=== PATIENT | male | born 1975 | race African-American/Black ===

== ENCOUNTER 2019-04-18 09:57 | Inpatient (IN) | payer OTHER ==
[2019-04-18 10:54] LABS: Bacteria/HPF None Seen HPF (None Seen); Bilirubin Negative (Negative); Blood, Urine 1+ (Negative); Clarity Clear (Clear); Glucose, Urine (Dipstick) Normal (Negative); Leukocyte Negative Leu/uL (Negative); Nitrite Negative (Negative); Protein, Urine (Dipstick) Negative (Neg-Trace); RBC/HPF 0-3 HPF (0-3); Squamous Epithelial 0-3 HPF (0-3); WBC/HPF 0-3 HPF (0-3)
[2019-04-18 11:40] LABS: #Basophils 0.1 thou/uL (0.0-0.2); #Eosinphils 0.2 thou/uL (0.0-0.7); #Lymphocytes 1.4 thou/uL (1.20-3.40); #Neutrophils 7.2 thou/uL (1.40-6.50); %Basophils 0.7 % (0.0-1.0); %Lymphocytes 14.1 % (21.0-51.0); %Monocytes 10.2 % (0.0-10.0); Hemoglobin 12.9 g/dL (14.0-18.0); Mean Corpuscular Hemoglobin 28.2 pg (27.0-31.0); Mean Corpuscular Volume 88.2 fL (78.0-98.0); Mean Platelet Volume 8.3 fL (7.4-10.4); Platelet Count 282 thou/uL (130-400); RBC Distribution Width 11.7 % (11.5-14.5); Red Blood Cell (RBC) Count 4.58 mill/uL (4.70-6.10); White Blood Cell (WBC) Count 9.9 thou/uL (4.8-10.8)
[2019-04-18] MEDS ORDERED: Ketorolac Tromethamine 30 MG/ML VIAL ONE (11:53)
[2019-04-18] MEDS ORDERED: Iopamidol 370 76% 50 ML VIAL FS ONE (12:00)
[2019-04-18] MEDS ORDERED: Iopamidol 370 76% 100 ML VIAL ONE (12:00)
[2019-04-18 12:14] LABS: ALT (SGPT) 62 U/L (8-55); AST (SGOT) 34 U/L (5-34); Albumin 3.9 g/dL (3.5-5.0); Alkaline Phosphatase 88 U/L (40-110); Anion Gap 13 mmol/L (10-20); BUN (Urea Nitrogen) 12 mg/dL (8.9-20.6); Bilirubin, Total 0.3 mg/dL (0.2-1.2); Calc. Creatinine Clearance 0 mL/min (70-130); Calcium 9.6 mg/dL (7.8-10.44); Carbon Dioxide 29 mmol/L (22-29); Chloride 102 mmol/L (98-107); Estimated GFR-MDRD 88; Globulin 3.2 g/dL (2.4-3.5); Glucose 90 mg/dL (70-105); Lipase 9 U/L (8-78); Potassium 4.2 mmol/L (3.5-5.1); Protein, Total 7.1 g/dL (6.0-8.3); Sodium 140 mmol/L (136-145)
--- NOTE | 2019-04-18 14:28 | CT ---
CT Abdomen Pelvis W Con History: Abdominal pain Comparison: None. Findings: Lung bases are clear. No pericardial effusion. Liver, spleen, pancreas, gallbladder, adrenal glands are unremarkable. No hydronephrosis. There is moderate diverticular disease of the sigmoid colon with a partially contained perforation al hussein the mesentery measuring up 5 cm.. There is an area of nonenhancement along the mesenteric wall. Lumbar spine is unremarkable. No acute osseous abnormality. Impression: Sigmoid diverticulitis with partially contained perforation containing gas and fluid exte nding along the sigmoid mesentery. Focal area of nonenhanced mucosal along the mesenteric side of the sigmoid. Follow-up colonoscopy after treatment recommended.
[2019-04-18] MEDS ORDERED: Cefepime 2 GM VIAL ONE (15:08)
[2019-04-18] MEDS ORDERED: metroNIDAZOLE 500 MG/100 ML BAG ONE (15:08)
[2019-04-18] MEDS ORDERED: Sodium Chloride 0.9% 1,000 ML IV SCH (17:42)
[2019-04-18] MEDS ORDERED: Ondansetron PF 4 MG/2 ML Vial IVP PRN ×2 (17:42→17:48)
[2019-04-18] MEDS ORDERED: Acetaminophen 325 MG TAB PO PRN (17:42)
[2019-04-18] MEDS ORDERED: Morphine 4 MG/ML VIAL SLOW IVP PRN (17:42)
[2019-04-18] MEDS ORDERED: Ondansetron ODT 4 MG TAB SL PRN (17:42)
[2019-04-18 18:16] LABS: Lactic Acid 1.9 mmol/L (0.5-2.2)
[2019-04-18] MEDS: Piperacillin/Tazobactam 4.5 GM in Sodium Chloride 0.9% 100 ML IVPB SCH (18:36)
[2019-04-18] MEDS: Acetaminophen 1,000 MG in Premix Bag 1 BAG IVPB PRN (19:42)
[2019-04-18] MEDS: Ketorolac Tromethamine 30 MG/ML VIAL IVP PRN (19:42)
--- NOTE | 2019-04-18 20:03 | HP ---
HISTORY OF PRESENT ILLNESS: Mr. Cunningham is a 43-year-old black man. He came to this facility earlier today with complaint of severe back ache, which started about one week ago and gets worse suddenly this morning. He was evaluated and found to have a perforated sigmoid diverticulitis. General surgery was consulted and he has been admitted for management. He denies any vomiting. He has been having diarrhea for the last week or so. He denies any fever. PAST MEDICAL HISTORY: Remarkable for hypertension. He denies any previous history of major surgery. He had some abscess incisioned. ALLERGIES: HE DOES NOT HAVE ANY KNOWN ALLERGY. SOCIAL HISTORY: He is an active smoker. We could not quantify his smoking habit. He denies EtOH abuse. He does drink socially. He denies substance abuse. FAMILY HISTORY: Reviewed and is not contributory. HOME MEDICATIONS: Not available at this time for identification. REVIEW OF SYSTEMS: CONSTITUTIONAL: He denies any fever. HEENT: No headache. No ocular pain. No sore throat. No rhinorrhea. No earache. No epistaxis. NECK: No neck pain. No neck stiffness. CARDIOVASCULAR: No shortness of breath. No chest pain. PULMONARY: No coughing. GASTROINTESTINAL: Admits to diarrhea. Abdominal pain. No vomiting. GENITOURINARY: No dysuria. No hematuria. MUSCULOSKELETAL: No arthralgia. No muscle pain. GENITOURINARY: No dysuria. No hematuria. HEMATOLOGIC: No abnormal bleeding. No ecchymosis. LYMPHATIC: No palpable lymphadenopathy. No painful lymphadenopathy. SKIN: No rash. No itching. ALLERGIC: No hay fever. NEUROLOGIC: No seizure. PSYCHIATRIC: No anxiety. No depression. PHYSICAL EXAMINATION: GENERAL: At the current time, he is alert, oriented, in no acute distress. VITAL SIGNS: His latest vital signs show a temperature of 98.6, pulse rate 73, respiratory rate 16, blood pressure 112/77. HEENT: Head is normocephalic and atraumatic. Both his pupils are equal and reactive. Ears and nose normal. Oral mucosa is moist. Pharyngeal area is clear. NECK: Supple. There is no distention of the jugular vein. No lymphadenopathy felt. Thyroid gland not palpable. There are no carotid bruits. CHEST: Symmetrical with regular S1, S2. LUNGS: Clear. ABDOMEN: Soft. Bowel sounds heard. We could not appreciate any organomegaly. EXTREMITIES: Limbs show no edema. NEUROLOGIC: He moves all extremities. LABORATORY DATA: CBC showed WBC of 9.9, hemoglobin of 12.9, hematocrit of 40.4, MCV of 88.2, platelet of 282. Chemistry and lytes showed sodium of 140, potassium 4.2, chloride 102, CO2 29, BUN 12, creatinine 1.12, glucose 90, lactic acid 2.1, calcium 9.6, AST 34, ALT 62, alkaline phosphatase is 88, total protein 7.1, , globulin 3.2. Lipase is 9. Urinalysis was reviewed, is essentially normal. Abdomen and pelvis CT was reported to show sigmoid diverticulitis with a partially containing gas and fluid extending along the sigmoid mesentery. ASSESSMENT: This is a 43-year-old black male with history of hypertension who has been admitted with perforated sigmoid diverticulitis. General surgery was consulted. The patient was started on antibiotics. He will be admitted to a surgical floor. Further evaluation and management will depend on his course of his hospitalization and his response to therapy. He will be on SCD for DVT prophylaxis. Job ID: [id number]
[2019-04-18] MEDS: Dextrose 5 % And 0.9 % NaCl 1,000 ML IV SCH (20:04)
[2019-04-18] MEDS: Enoxaparin Sodium 40 MG/0.4 ML SYRINGE SC SCH (20:47)
[2019-04-18 22:30] VITALS: BMI 36.9
[2019-04-18] MEDS ORDERED: metroNIDAZOLE 500 MG in Premix Bag 1 BAG IVPB SCH (23:00)
[2019-04-19] MEDS: Ketorolac Tromethamine 30 MG/ML VIAL IVP PRN ×4 (00:51→21:44)
[2019-04-19] MEDS: Acetaminophen 1,000 MG in Premix Bag 1 BAG IVPB PRN ×3 (00:51→12:05)
[2019-04-19] MEDS: Piperacillin/Tazobactam 4.5 GM in Sodium Chloride 0.9% 100 ML IVPB SCH ×5 (00:52→23:24)
--- NOTE | 2019-04-19 03:24 | HP ---
HISTORY OF PRESENT ILLNESS: Carlos Cunningham is a 43-year-old black male who works at the [employer]. He has had pain in his left lower quadrant with back radiation for several weeks, not knowing what it is. He presents to the emergency room and CAT scan of the abdomen and pelvis reveals diverticulitis with contained perforation. His white count is 9 and hemoglobin 12. He has not had any fever. ALLERGIES: NONE. SOCIAL HISTORY: Tobacco, one pack per day. Alcohol, occasionally. The patient is single. He lives with his family. PAST SURGICAL HISTORY: Nasal surgery. PAST MEDICAL HISTORY: Hypertension. MEDICATIONS: He cannot recall his medications he takes. There is no family history of colon cancer. FAMILY HISTORY: Noncontributory. REVIEW OF SYSTEMS: Noncontributory. PHYSICAL EXAMINATION: VITAL SIGNS: Weight 117 kg, blood pressure 131/78, heart rate 82, respiratory rate 16, and temperature 100.3 degrees. HEAD, EARS, EYES, NOSE, AND THROAT: Unremarkable. LUNGS: Clear to auscultation. CARDIAC: Regular rate and rhythm without murmur or gallop. ABDOMEN: Soft. Tenderness in his left lower quadrant with mild guarding. His upper abdomen is soft. EXTREMITIES: Unremarkable. No ankle edema. LABORATORY DATA: BUN 12 and creatinine 1.12. ASSESSMENT AND PLAN: Diverticulitis. Would recommend bowel rest, intravenous antibiotics, and Zosyn 4.5 g q.6 hours. Would educate him on a low-fiber diet for the next 3 weeks, transition to high-fiber diet after that. Expect him to be treated with intravenous antibiotics with resolution of his symptoms and discharge home in 48 to 72 hours on oral antibiotics for a week and half. He should be n.p.o. until his pain improves, resolves, and he can be slowly advanced to a soft low-fiber diet, and then transition to high-fiber diet after three weeks. He should have a colonoscopy in the next 6 to 8 weeks. We will follow him along with medical services. Job ID: [id number]
[2019-04-19] MEDS: Dextrose 5 % And 0.9 % NaCl 1,000 ML IV SCH ×3 (05:53→23:24)
--- NOTE | 2019-04-19 11:23 | PDOC.HOSPP ---
- Subjective Encounter Date: 04/19/19 Encounter Time: 11:21 Subjective: abd pain improved - Objective Vital Signs & Weight: Vital Signs (12 hours) Temp Pulse Resp BP Pulse Ox 04/19/19 08:00 99 04/19/19 03:00 98.2 F 62 12 100/64 98 Weight Weight 250 lb I&O: 04/18/19 04/19/19 04/20/19 06:59 06:59 06:59 Intake Total 1600 Balance 1600 Result Diagrams: 04/18/19 11:06 04/18/19 11:06 Hospitalist ROS - Medication Medications: Active Medications Generic Name Dose Route Start Last Admin Trade Name Freq PRN Reason Stop Dose Admin Enoxaparin Sodium 40 mg 04/18/19 21:00 04/18/19 20:47 Lovenox SC 40 mg 2100 LAWANDA Administration Dextrose/Sodium Chloride 1,000 mls @ 100 mls/hr 04/18/19 17:48 04/19/19 05:53 D5 0.9% Ns IV 1,000 mls .Q10H LAWANDA Administration Acetaminophen 1,000 mg/ Device 100 mls @ 400 mls/hr 04/18/19 18:18 04/19/19 05:53 IVPB 04/19/19 18:19 100 mls Q6H PRN Administration Fever/Mild Pain Piperacillin Sod/Tazobactam 100 mls @ 200 mls/hr 04/18/19 18:00 04/19/19 05: 54 Sod 4.5 gm/ Sodium Chloride IVPB 100 mls Q6HR LAWANDA Administration Ketorolac Tromethamine 30 mg 04/18/19 18:18 04/19/19 05:54 Toradol IVP 04/23/19 18:19 30 mg Q6H PRN Administration Pain - Exam Neck: no JVD Heart: RRR, no murmur Respiratory: CTAB Gastrointestinal: soft, normal bowel sounds Gastrointestinal - other findings: mild LLQ tenderness Extremities: no edema Hosp A/P (1) Diverticulitis of colon with perforation Code(s): K57.20 - DVTRCLI OF LG INT W PERFORATION AND ABSCESS W/O BLEEDING Status: Acute Qualifiers: Diverticulitis bleeding: without bleeding Qualified Code(s): K57.20 - Diverticulitis of large intestine with perforation and abscess without bleeding (2) HTN (hypertension) Code(s): I10 - ESSENTIAL (PRIMARY) HYPERTENSION Status: Chronic Qualifiers: Hypertension type: essential hypertension Qualified Code(s): I10 - Essential (primary) hypertension (3) Anemia Code(s): D64.9 - ANEMIA, UNSPECIFIED Status: Acute Qualifiers: Anemia type: unspecified type Qualified Code(s): D64.9 - Anemia, unspecified (4) Tobacco abuse Code(s): Z72.0 - TOBACCO USE Status: Chronic - Plan cont NPO cont iv antibx parenteral BP control
--- NOTE | 2019-04-19 13:48 | PRG ---
DATE OF SERVICE: 04/19/2019 SUBJECTIVE: Carlos Cunningham is doing well today. His pain is slightly diminished. He is thirsty. OBJECTIVE: VITAL SIGNS: Temperature 97.9 degrees, heart rate 53, and blood pressure 115/78. No laboratories today. LUNGS: Clear to auscultation. CARDIAC: Regular rate and rhythm. No murmur or gallop. ABDOMEN: Soft. Mild tenderness in the left lower quadrant with mild guarding, less tender than he was yesterday. ASSESSMENT AND PLAN: Diverticulitis. We can start clear liquids today. We can saline lock whenever he is tolerating liquids. He should continue intravenous antibiotics today, and tomorrow if he is doing well, he could be sent home on Augmentin 875 mg p.o. b.i.d. for 7 days. He can follow up in my office in 2 weeks. He was instructed he should be on a low-fiber diet for 3 weeks, then transition to high-fiber diet. He should follow up with Gastroenterology for an outpatient colonoscopy in the next 6 to 8 weeks. He can return to see me in my office in 2 to 3 weeks. He should be on clear liquids today and perhaps if he is doing well tomorrow, he can be advanced to full liquids. Discharge home and advance to soft low-fiber diet for 3 weeks as tolerated as pain resolves. I would recommend Tylenol and Ultram for pain and avoid narcotics. Dr. Segal is covering until Friday. Job ID: [id number]
[2019-04-19] MEDS: Enoxaparin Sodium 40 MG/0.4 ML SYRINGE SC SCH (21:31)
[2019-04-19] MEDS ORDERED: Acetaminophen 1,000 MG in Premix Bag 1 BAG IVPB PRN (21:36)
[2019-04-19] MEDS: Morphine 2 MG/ML SYRINGE SLOW IVP PRN (21:45)
[2019-04-20] MEDS: Piperacillin/Tazobactam 4.5 GM in Sodium Chloride 0.9% 100 ML IVPB SCH ×4 (05:35→23:41)
[2019-04-20] MEDS ORDERED: Acetaminophen 650 MG/20.3 ML UDCUP PO PRN (09:39)
[2019-04-20] MEDS: Ketorolac Tromethamine 30 MG/ML VIAL IVP PRN (09:47)
[2019-04-20] MEDS: Dextrose 5 % And 0.9 % NaCl 1,000 ML IV SCH ×2 (09:49→12:00)
[2019-04-20] MEDS ORDERED: Acetaminophen 1,000 MG in Premix Bag 1 BAG IVPB PRN (10:32)
--- NOTE | 2019-04-20 10:32 | PDOC.HOSPP ---
- Subjective Encounter Date: 04/20/19 Encounter Time: 10:31 Subjective: still has some LLQ pain/tenderness - Objective Vital Signs & Weight: Vital Signs (12 hours) Temp Pulse Resp BP Pulse Ox 04/20/19 07:55 99 04/20/19 03:09 98.1 F 50 L 16 105/67 98 04/19/19 23:04 98.4 F 60 16 115/75 97 Weight Weight 250 lb I&O: 04/19/19 04/20/19 04/21/19 06:59 06:59 06:59 Intake Total 1600 4540 Balance 1600 4540 Result Diagrams: 04/18/19 11:06 04/18/19 11:06 Hospitalist ROS - Medication Medications: Active Medications Generic Name Dose Route Start Last Admin Trade Name Freq PRN Reason Stop Dose Admin Enoxaparin Sodium 40 mg 04/18/19 21:00 04/19/19 21:31 Lovenox SC 40 mg 2100 LAWANDA Administration Dextrose/Sodium Chloride 1,000 mls @ 100 mls/hr 04/18/19 17:48 04/20/19 09:49 D5 0.9% Ns IV Not Given .Q10H LAWANDA Piperacillin Sod/Tazobactam 100 mls @ 200 mls/hr 04/18/19 18:00 04/20/19 05: 35 Sod 4.5 gm/ Sodium Chloride IVPB 100 mls Q6HR LAWANDA Administration Ketorolac Tromethamine 30 mg 04/18/19 18:18 04/20/19 09:47 Toradol IVP 04/23/19 18:19 30 mg Q6H PRN Administration Pain Morphine Sulfate 2 mg 04/18/19 17:48 04/19/19 21:45 Morphine SLOW IVP 2 mg Q4H PRN Administration Moderate Pain (4-6) - Exam Neck: no JVD Heart: RRR, no murmur Respiratory: CTAB Gastrointestinal: soft, normal bowel sounds Gastrointestinal - other findings: mild LLQ tenderness Extremities: no edema Hosp A/P (1) Diverticulitis of colon with perforation Code(s): K57.20 - DVTRCLI OF LG INT W PERFORATION AND ABSCESS W/O BLEEDING Status: Acute Qualifiers: Diverticulitis bleeding: without bleeding Qualified Code(s): K57.20 - Diverticulitis of large intestine with perforation and abscess without bleeding (2) HTN (hypertension) Code(s): I10 - ESSENTIAL (PRIMARY) HYPERTENSION Status: Chronic Qualifiers: Hypertension type: essential hypertension Qualified Code(s): I10 - Essential (primary) hypertension (3) Anemia Code(s): D64.9 - ANEMIA, UNSPECIFIED Status: Acute Qualifiers: Anemia type: unspecified type Qualified Code(s): D64.9 - Anemia, unspecified (4) Tobacco abuse Code(s): Z72.0 - TOBACCO USE Status: Chronic - Plan cont NPO cont iv antibx parenteral BP control add flgyl iv
--- NOTE | 2019-04-20 10:44 | PRG ---
DATE OF SERVICE: SUBJECTIVE: Mr. Cunningham is complaining of more bloating today, has slightly more increased left lower quadrant pain. He is afebrile. Vital signs are stable. His abdomen is soft. He still has left lower quadrant pain and guarding, but no diffuse peritoneal signs. No new labs today. ASSESSMENT: Diverticulitis. PLAN: Continue Zosyn. He is on a clear liquid diet which he can do as tolerated. I suspect he will be improved and ready for discharge in the next few days. Job ID: [id number]
[2019-04-20] MEDS: metroNIDAZOLE 500 MG in Premix Bag 1 BAG IVPB SCH ×2 (11:58→20:19)
[2019-04-20] MEDS: Morphine 2 MG/ML SYRINGE SLOW IVP PRN (18:28)
[2019-04-20] MEDS: Enoxaparin Sodium 40 MG/0.4 ML SYRINGE SC SCH (20:20)
[2019-04-21] MEDS: metroNIDAZOLE 500 MG in Premix Bag 1 BAG IVPB SCH (04:17)
[2019-04-21] MEDS: Dextrose 5 % And 0.9 % NaCl 1,000 ML IV SCH (04:54)
[2019-04-21 05:32] LABS: #Eosinphils 0.2 thou/uL (0.0-0.7); #Lymphocytes 1.3 thou/uL (1.20-3.40); #Monocytes 0.8 thou/uL (0.11-0.59); #Neutrophils 4.8 thou/uL (1.40-6.50); %Basophils 0.4 % (0.0-1.0); %Eosinophils 3.1 % (0.0-10.0); %Lymphocytes 17.9 % (21.0-51.0); %Monocytes 10.9 % (0.0-10.0); %Neutrophils 67.7 % (42.0-75.0); Hemoglobin 10.9 g/dL (14.0-18.0); Mean Corpuscular HGB CONC 32.1 g/dL (32.0-36.0); Mean Corpuscular Hemoglobin 28.5 pg (27.0-31.0); Mean Corpuscular Volume 88.9 fL (78.0-98.0); Platelet Count 287 thou/uL (130-400); RBC Distribution Width 11.5 % (11.5-14.5); Red Blood Cell (RBC) Count 3.84 mill/uL (4.70-6.10)
[2019-04-21] MEDS: Piperacillin/Tazobactam 4.5 GM in Sodium Chloride 0.9% 100 ML IVPB SCH (05:32)
[2019-04-21 05:58] LABS: Anion Gap 12 mmol/L (10-20); BUN (Urea Nitrogen) 6 mg/dL (8.9-20.6); Calc. Creatinine Clearance 130 mL/min (70-130); Calcium 8.8 mg/dL (7.8-10.44); Carbon Dioxide 26 mmol/L (22-29); Chloride 106 mmol/L (98-107); Estimated GFR-MDRD 81; Glucose 86 mg/dL (70-105); Potassium 4.3 mmol/L (3.5-5.1); Sodium 140 mmol/L (136-145)
[2019-04-21 07:48] VITALS: BP 121/73; TEMP 98.1
--- NOTE | 2019-04-21 08:39 | PDOC.HOSPP ---
- Subjective Encounter Date: 04/21/19 Encounter Time: 08:37 Subjective: pain much decreased - Objective Vital Signs & Weight: Vital Signs (12 hours) Temp Pulse Resp BP BP Pulse Ox 04/21/19 07:46 98.1 F 58 L 18 121/73 98 04/21/19 03:12 97.8 F 54 L 16 120/74 98 04/20/19 23:11 98.1 F 64 16 108/71 98 Weight Weight 250 lb I&O: 04/20/19 04/21/19 04/22/19 06:59 06:59 06:59 Intake Total 4540 2200 640 Balance 4540 2200 640 Result Diagrams: 04/21/19 05:19 04/21/19 05:19 Hospitalist ROS - Medication Medications: Active Medications Generic Name Dose Route Start Last Admin Trade Name Freq PRN Reason Stop Dose Admin Enoxaparin Sodium 40 mg 04/18/19 21:00 04/20/19 20:20 Lovenox SC 40 mg 2100 LAWANDA Administration Dextrose/Sodium Chloride 1,000 mls @ 100 mls/hr 04/18/19 17:48 04/21/19 04:54 D5 0.9% Ns IV Not Given .Q10H LAWANDA Piperacillin Sod/Tazobactam 100 mls @ 200 mls/hr 04/18/19 18:00 04/21/19 05: 32 Sod 4.5 gm/ Sodium Chloride IVPB 100 mls Q6HR LAWANDA Administration Metronidazole 500 mg/ Device 100 mls @ 100 mls/hr 04/20/19 12:00 04/21/19 04: 17 IVPB 100 mls 0400,1200,2000 LAWANDA Administration Acetaminophen 1,000 mg/ Device 100 mls @ 400 mls/hr 04/20/19 10:32 04/20/19 20:19 IVPB 04/21/19 10:33 100 mls Q6H PRN Administration Fever/Mild Pain Morphine Sulfate 2 mg 04/18/19 17:48 04/20/19 18:28 Morphine SLOW IVP 2 mg Q4H PRN Administration Moderate Pain (4-6) Sodium Chloride 10 ml 04/20/19 21:00 04/20/19 20:20 Flush - Normal Saline IVF 10 ml Q12HR LAWANDA Administration Sodium Chloride 10 ml 04/20/19 16:03 04/20/19 18:23 Flush - Normal Saline IVF 10 ml PRN PRN Administration Saline Flush - Exam Neck: no JVD Heart: RRR, no murmur Respiratory: CTAB, no wheezes Gastrointestinal: soft, non-tender, normal bowel sounds Extremities: no edema Hosp A/P (1) Diverticulitis of colon with perforation Code(s): K57.20 - DVTRCLI OF LG INT W PERFORATION AND ABSCESS W/O BLEEDING Status: Acute Qualifiers: Diverticulitis bleeding: without bleeding Qualified Code(s): K57.20 - Diverticulitis of large intestine with perforation and abscess without bleeding (2) HTN (hypertension) Code(s): I10 - ESSENTIAL (PRIMARY) HYPERTENSION Status: Chronic Qualifiers: Hypertension type: essential hypertension Qualified Code(s): I10 - Essential (primary) hypertension (3) Anemia Code(s): D64.9 - ANEMIA, UNSPECIFIED Status: Acute Qualifiers: Anemia type: unspecified type Qualified Code(s): D64.9 - Anemia, unspecified (4) Tobacco abuse Code(s): Z72.0 - TOBACCO USE Status: Chronic - Plan discuss DC with surgery, po antibx choice , etc
--- NOTE | 2019-04-21 10:21 | PRG ---
DATE OF SERVICE: 04/21/2019 SUBJECTIVE: Mr. Cunningham feels much better today, has no pain. He is ready to be discharged. No nausea or vomiting. PHYSICAL EXAMINATION: VITAL SIGNS: He is afebrile. Vital signs are stable. ABDOMEN: Soft, minimally tender in the left lower quadrant without guarding or rebound. ASSESSMENT: Diverticulitis, moderate to severe, improved. PLAN: Switch to Augmentin. Discharge home. Follow up with Dr. Josue in 2 weeks. Job ID: [id number]
--- NOTE | 2019-04-22 09:55 | DIS ---
DATE OF ADMISSION: 04/18/2019 DATE OF DISCHARGE: 04/21/2019 PRIMARY CARE PROVIDER: Dr. Jerry Manuel. DISPOSITION: Discharged home. FINAL DIAGNOSES: Diverticulitis of colon with perforation, hypertension, unspecified anemia, tobacco use. DISCHARGE MEDICATIONS: 1. Augmentin 875 one p.o. b.i.d. for 10 days. 2. Lisinopril/hydrochlorothiazide 10/12.5 one a day. 3. Zofran oral dissolving tablet every 6 hours as needed for nausea. ALLERGIES: NONE. PENDING AT THE TIME OF DISCHARGE: Nothing. DIET: Low residue. CODE STATUS: Full. HOSPITAL COURSE: The patient admitted to the [facility] through [facility] with diverticulitis with perforation. Initial laboratory; white count 9.9, hemoglobin 12.9, platelet count 282,000. Comprehensive metabolic profile normal except for an ALT of 62. Lactic acid was normal. CT scan of abdomen and pelvis, sigmoid diverticulitis with partially contained perforation. The patient was placed in the hospital on IV antibiotics. Cultures were unremarkable. Dr. Kemar Josue saw the patient, recommended nonsurgical therapy. The patient's pain receded. He was started on diet. At the time of discharge, vital signs were stable. Abdomen was benign. He was discharged by Dr. Kemar Josue to be followed up in 2 to 3 weeks in his office. Job ID: [id number]
== END 2019-04-21 11:18 | disposition home or self-care (01) | DRG 392 ==
LOC: ERS 09:57 → SURG A 17:36
PROVIDERS: ADMIT Specialist; ATTEND Specialist
DX: K57.20 Diverticulitis of large intestine with perforation and abscess without bleeding (principal); I10 Essential (primary) hypertension; F17.210 Nicotine dependence, cigarettes, uncomplicated; D64.9 Anemia, unspecified
CPT/HCPCS: 36415; 74177; 80048; 80053; 81003; 81015; 83605; 83690; 85025; 87040; 87149; 96365; 96367; 96375; J0131; J0692; J1650; J1885; J2270; J2543; J3490; Q9967

== ENCOUNTER 2021-02-28 01:22 | Emergency (ER) | payer OTHER ==
[2021-02-28] MEDS ORDERED: Acetaminophen 325 MG TAB ONE (01:52)
[2021-02-28] MEDS ORDERED: Ketorolac Tromethamine 30 MG/ML VIAL ONE (01:52)
[2021-02-28] MEDS ORDERED: Orphenadrine Citrate 60 MG/2 ML VIAL IM SCH (02:00)
== END 2021-02-28 03:28 | disposition home or self-care (01) ==
LOC: ERS 01:22
DX: M62.830 Muscle spasm of back (principal); I10 Essential (primary) hypertension; F17.210 Nicotine dependence, cigarettes, uncomplicated
CPT/HCPCS: 96372; 99283; J1885; J2360

== ENCOUNTER 2021-04-16 14:52 | Outpatient (CLI) | payer OTHER | END 2021-04-16 14:53 | disposition home or self-care (01) | LOC: BICRAD 14:52 | PROVIDERS: ATTEND Family Medicine | DX: R10.9 Unspecified abdominal pain (principal) ==

== ENCOUNTER 2021-06-27 07:33 | Outpatient (CLI) | payer OTHER ==
[2021-06-27] MEDS ORDERED: Iopamidol-370 76% 500 ML 1 ML ONE (10:57)
== END 2021-06-27 07:34 | disposition home or self-care (01) ==
LOC: BICCT 07:33
PROVIDERS: ATTEND Family Medicine
DX: R10.9 Unspecified abdominal pain (principal)
CPT/HCPCS: 74177; Q9967

== ENCOUNTER 2024-04-18 15:35 | Emergency (ER) | payer OTHER ==
[2024-04-18] MEDS ORDERED: Ketorolac Tromethamine 30 MG (1 mL) VIAL ONE (17:05)
== END 2024-04-18 17:34 | disposition home or self-care (01) ==
LOC: ERS 15:35
DX: S43.401A Unspecified sprain of right shoulder joint, initial encounter (principal); I10 Essential (primary) hypertension; F17.210 Nicotine dependence, cigarettes, uncomplicated; X58.XXXA Exposure to other specified factors, initial encounter; Y93.89 Activity, other specified
CPT/HCPCS: 96372; 99283; J1885